=== PATIENT | female | born 1960 | race Caucasian/White ===

== ENCOUNTER 2019-11-23 12:02 | Outpatient (CLI) | payer BC, SELFPAY ==
--- NOTE | ~2019-11-23 | MM_ITS ---
EXAMINATION: MM diagnostic igor LT w quinton HISTORY: Left breast cancer history TECHNIQUE: ML, MLO and cc 3-D tomosynthesis images of the left breast were performed and synthetic 2- D images were generated. CAD analysis was submitted and interpreted. COMPARISON: 04/14/2019bilateral diagnostic digital mammogram To bilateral digital screening mammogram BREAST PARENCHYMAL COMPOSITION: There are scattered areas of fibroglandular density. FINDINGS: No interval suspicious mass, architectural distortion or significant new or developing dens ity or any malignant calcification, skin thickening or retraction is noted compared to 04/14/2019. IMPRESSION: 1. Known left breast malignancy 2. No significant change since 04/14/2019 BI-RADS Category 6: Known malignancy Reviewed, dictated and finalized at location A.
== END 2019-11-23 12:03 | disposition home or self-care (01) ==
PROVIDERS: PCP Family Medicine; Visit Provider Internal Medicine Hematology & Oncology
DX: C50.112 Malignant neoplasm of central portion of left female breast (principal); Z17.0 Estrogen receptor positive status [ER+]
CPT/HCPCS: 77061; 77065; G0279

== ENCOUNTER 2020-05-23 12:52 | Outpatient (CLI) | payer BC, SELFPAY ==
--- NOTE | ~2020-05-23 | DEXA_ITS ---
Bone Density Report Name: Bouchra Ramirez Age: 59 Sex: Female Ethnicity: White Date of : 1960 Indication: postmenopausal; height loss; prior fracture; cancer; Referring Provider: Teddy Chilel Study: Bone densitometry was performed. Exam Date: May 23, 2020 Accession number: [id number] Bone Density: Region BMD T-score Z-score Classification AP Spine (L1-L4) 0.723 -2.9 -1.6 Osteoporosis Femoral Neck (Left) 0.700 -1.3 -0.1 Osteopenia Total Hip (Left) 0.890 -0.4 0.5 Normal Total Hip Bilateral Avg 0.897 -0.4 0.6 Normal Femoral Neck (Right) 0.637 -1.9 -0.7 Osteopenia Total Hip (Right) 0.904 -0.3 0.6 Normal World Health Organization criteria for BMD impression classify patients as: Normal (T-score at or above -1.0), Osteopenia (T-score between -1.0 and -2.5), or Osteoporosis (T-score at or below -2.5). 10-year Fracture Risk: FRAX not reported because: Some T-score for Spine Total or Hip Total or Femoral Neck at or below -2.5 Clinical Information Provided by Patient: Has had a low trauma fracture Has the following medical conditions: Cancer Patient maximum height was 64 Menopause Age: 40 Drinks caffeinated beverages Onset of menses at age 13 Number of children 1 Impression: The patient has established osteoporosis, based on the Total Spine T-score and the existence of a prior fracture. The patient has risk factors, including: previous fracture. Discussion: HIGH RISK OF FRACTURE. BONE DENSITY IS UNDESIRABLY LOW AT ONE OR MORE SKELETAL SITES, CONSISTENT WITH POSTMENOPAUSAL OSTEOPOROSIS. This patient's lowest T-score, in a patient who has previously fractured, meets the World Health Organization's (WHO) criteria for severe osteoporosis. In untreated patients, the risk of osteoporotic fracture increases approximately two-fold for each 1.0 SD decrease in T-score. Low bone density is not the only risk factor for fracture; also consider factors such as patient's age, frailty or poor health, risk of falling, risk of injury, previous osteoporotic fracture, family history of osteoporosis, cigarette smoking, low body weight, etc. Not everyone with low bone mineral density has osteoporosis; osteomalacia and other metabolic bone disorders should also be considered. Patients who have osteoporosis should be evaluated for specific diseases and conditions (secondary causes) that may cause or contribute to bone loss. The [place] [employer] Endocrinologists (AACE) and National Osteoporosis Foundation (NOF) recommend pharmacologic intervention for all postmenopausal women whose T-score is in this range. The patient should follow a healthful lifestyle (good nutrition with adequate calcium and vitamin D, and appropriate weight-bearing exercise). Follow-Up: Consider a repeat BMD and Vertebral Fracture Assessment (VFA) exam
--- NOTE | ~2020-05-23 | MM_ITS ---
EXAMINATION: MM diagnostic igor BI w quinton HISTORY: Status post left partial mastectomy for breast cancer TECHNIQUE: ML, MLO and craniocaudal 3-D tomosynthesis images of both breasts were performed and synth etic 2-D images were generated. CAD analysis was submitted and interpreted. COMPARISON: 11/23/2019 diagnostic left digital mammogram 04/14/2019 bilateral diagnostic digital mammogram BREAST PARENCHYMAL COMPOSITION: There are scattered areas of fibroglandular density. FINDINGS: Right-sided Port-A-Cath is again noted. Postsurgical changes and BioSorb marker are again n oted posteriorly in the mid to upper outer left breast. There are areas of fat necrosis and benign ca lcification. No interval suspicious mass, architectural distortion, malignant calcification, skin thickening or re traction of either breast is evident. IMPRESSION: 1. Status post left partial mastectomy for breast cancer; no malignancy is evident 2. Routine annual mammographic screening is recommended, with any additional imaging as appropriate c linically BI-RADS Category 2: Benign finding(s). Reviewed, dictated and finalized at location A. [employer] IMPRESSION: 1. Status post left partial mastectomy for breast cancer; no malignancy is evid ent 2. Routine annual mammographic screening is recommended, with any additional im aging as appropriate clinically BI-RADS Category 2: Benign finding(s).
== END 2020-05-23 12:53 | disposition home or self-care (01) ==
LOC: ANHIMG 12:58
PROVIDERS: PCP Family Medicine; Visit Provider Internal Medicine Hematology & Oncology
DX: Z12.31 Encounter for screening mammogram for malignant neoplasm of breast (principal); Z78.0 Asymptomatic menopausal state; M81.0 Age-related osteoporosis without current pathological fracture; M85.89 Other specified disorders of bone density and structure, multiple sites
CPT/HCPCS: 77062; 77066; 77080; G0279

== ENCOUNTER 2020-11-28 11:28 | Outpatient (CLI) | payer BC, SELFPAY ==
--- NOTE | ~2020-11-28 | MM_ITS ---
EXAMINATION: MM diagnostic igor LT w quinton HISTORY: History of left breast cancer with lumpectomy and chemotherapy therapy/radiation therapy. TECHNIQUE: Additional 3-D tomosynthesis images of the breasts were performed and synthetic 2-D images were generated. CAD analysis was submitted and interpreted. COMPARISON: Comparison to multiple prior studies sequentially, with oldest reviewed study dated 11/28. BREAST PARENCHYMAL COMPOSITION: Breast composed of scattered areas of fibroglandular density. FINDINGS: There are no new masses, calcifications or architectural distortion in either breast to sug gest malignancy. There is fat necrosis in the lower inner quadrant of the left breast with developing dystrophic calcifications. There are markers located in the upper outer quadrant of the left breast posteriorly in the area of previous lumpectomy. There is a port catheter overlying the right breast. IMPRESSION: 1. No evidence for malignancy in either breast. 2. Routine yearly screening mammogram and regular clinical breast examination are recommended. BI-RADS Category 2: Benign finding(s). Reviewed, dictated and finalized at location A. IMPRESSION: 1. No evidence for malignancy in either breast. 2. Routine yearly screening mammogram and regular clinical breast examination a re recommended. BI-RADS Category 2: Benign finding(s).
== END 2020-11-28 11:29 | disposition home or self-care (01) ==
LOC: ANHIMG 11:34
PROVIDERS: PCP Family Medicine; Visit Provider Internal Medicine Hematology & Oncology
DX: C50.112 Malignant neoplasm of central portion of left female breast (principal); Z17.0 Estrogen receptor positive status [ER+]
CPT/HCPCS: 77061; 77065; G0279

== ENCOUNTER 2021-03-06 02:01 | Day surgery (SDC) | payer BC, SELFPAY ==
[2021-02-22 12:03] VITALS: BMI 30.2
--- NOTE | 2021-03-06 06:41 | PM.HPGS ---
History of Present Illness History of Present Illness Consent: Risks, benefits, and alternatives have been discussed and questions answered. Patient agrees to proceed with procedure. Chief complaint: neoplasm screening Narrative: Bouchra Ramirez is a 60 year old female Referred for colon cancer screening. She has a history of breast cancer Review of Systems Review of Systems: All systems reviewed & are unremarkable except as noted in HPI and below PMFSH Past Medical History Medical History BP (high blood pressure) Chemotherapy follow-up examination Chronic anemia MDD (major depressive disorder), recurrent episode, moderate Obesity (BMI 30.0-34.9) Surgical History Surgical History History of partial mastectomy of left breast Family History Family History Grandparent Family history of malignant neoplasm of breast Sibling Asthma Patient's sister is in good health Patient's brother is in good health Mother Patient's mother is in good health Family history of arthritis Father Family history of cardiovascular disease Social History Social History Social History: Smoking status: Former smoker Tobacco type: cigarettes Second hand tobacco smoke exposure: No Alcohol intake: current Drinks per week: 28 Alcohol use details: beer Substance use: never Substance use type: does not use Living arrangements: alone 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 Gender identity (if verbalized by the patient): Female Spiritual care concerns: No Meds Home Medications and Allergies Home Medications Medication Instructions Recorded Confirmed Type anastrozole 1 mg tablet 1 mg PO DAILY 06/26/19 02/22/21 History venlafaxine 37.5 mg 37.5 mg PO DAILY #30 tablet 01/18/21 02/22/21 Rx tablet,extended release 24 hr metoprolol tartrate 25 mg PO DAILY 02/22/21 02/22/21 History Allergies Allergy/AdvReac Type Severity Reaction Status Date / Time No Known Allergies Allergy Unknown Verified 02/22/21 12:01 Exam Resp: Auscultation: clear to auscultation bilaterally Cardio: Rate: regular rate Rhythm: regular rhythm GI: GI Palp: Yes Soft to palpation and No Tenderness to palpation present (GI) Assessment and Plan Assessment and plan (1) Colon cancer screening: Code(s): Z12.11 - Encounter for screening for malignant neoplasm of colon Status: Acute Assessment and Plan: Colonoscopy with possible biopsy or polypectomy or cautery or injection of substances.
[2021-03-06 08:12] VITALS: BP 134/86; PULSE 70; RESP 18; TEMP 36.2; O2SAT 98; BMI 31.2
--- NOTE | 2021-03-06 08:19 | P.PNAN_ITS ---
Anes - Initial Pre Proc Eval Procedure: Operation Date: 03/06/21 09:00 Proposed Procedures p Screening Colonoscopy - Porter Hubbard MD Date/Time: 03/06/21 08:19 Surgeon: Porter Hubbard MD Pre Op Diagnosis: neoplasm screening Patient Data Age: 60 Gender: F Height: 1.6 m Weight: 80 kg Last Vital Signs Temp 36.2 C L 03/06/21 08:12 Pulse 70 03/06/21 08:12 Resp 18 03/06/21 08:12 BP 134/86 03/06/21 08:12 Pulse Ox 98 03/06/21 08:12 Allergies Allergy/AdvReac Type Severity Reaction Status Date / Time No Known Allergies Allergy Unknown Verified 02/22/21 12:01 Home Medications Medication Instructions Recorded Confirmed Type anastrozole 1 mg tablet 1 mg PO DAILY 06/26/19 02/22/21 History venlafaxine 37.5 mg 37.5 mg PO DAILY #30 tablet 01/18/21 02/22/21 Rx tablet,extended release 24 hr metoprolol tartrate 25 mg PO DAILY 02/22/21 02/22/21 History Patient hx anesthesia problems: none Family hx anesthesia problems: none Results Review: All pre-operative results and documents have been reviewed as part of the pre-operative evaluation. [facility] Past Medical History Medical History BP (high blood pressure) Chemotherapy follow-up examination Chronic anemia MDD (major depressive disorder), recurrent episode, moderate Obesity (BMI 30.0-34.9) Surgical History Surgical History History of partial mastectomy of left breast Family History Family History Grandparent Family history of malignant neoplasm of breast Sibling Asthma Patient's sister is in good health Patient's brother is in good health Mother Patient's mother is in good health Family history of arthritis Father Family history of cardiovascular disease Social History Social History Social History: Smoking status: Former smoker Tobacco type: cigarettes Second hand tobacco smoke exposure: No Alcohol intake: current Drinks per week: 28 Alcohol use details: beer Substance use: never Substance use type: does not use Living arrangements: alone Additional occupation/education comments: real time analyst Gender identity (if verbalized by the patient): Female Spiritual care concerns: No Anes - Eval Final PreProcedure Day of Procedure 03/06/21 08:19 Patient weight: obese Heart: regular rate and rhythm Lungs: clear to auscultation Airway: Mallampati scale class II Neurological: alert and oriented Last oral intake: >/= 8 hours ASA classification: III Emergent: no Anesthetic plan: proceed Anesthesia type and monitoring: general GIVS and standard monitoring Results Review: All pre-operative results and documents have been reviewed as part of the pre-operative evaluation. Informed Consent: The patient's anesthetic plan and its attendant risks and benefits were discussed with the patient/family/POA. Questions were solicited and answers provided to the satisfaction of the patient/family/POA.
[2021-03-06] MEDS: LACTATED RINGERS 1,000 ML 150 ML IV CONT (08:22)
[2021-03-06 09:25] VITALS: BP 94/64; PULSE 66; RESP 15; O2SAT 99
[2021-03-06 09:35] VITALS: BP 94/59; PULSE 60; RESP 15; O2SAT 99
[2021-03-06 09:45] VITALS: BP 120/79; PULSE 61; RESP 18; O2SAT 100
== END 2021-03-06 10:16 | disposition home or self-care (01) ==
PROVIDERS: PCP Family Medicine; Visit Provider Internal Medicine Gastroenterology
PROC: 0DJD8ZZ Inspection of Lower Intestinal Tract, Via Natural or Artificial Opening Endoscopic (ICD-10-PCS; CPT 45378; principal; 2021-03-06 09:00)
DX: Z12.11 Encounter for screening for malignant neoplasm of colon (principal); D12.5 Benign neoplasm of sigmoid colon; K57.30 Diverticulosis of large intestine without perforation or abscess without bleeding; I10 Essential (primary) hypertension; D64.9 Anemia, unspecified; F33.1 Major depressive disorder, recurrent, moderate; Z79.811 Long term (current) use of aromatase inhibitors; Z92.21 Personal history of antineoplastic chemotherapy; Z87.891 Personal history of nicotine dependence; E66.9 Obesity, unspecified; Z68.31 Body mass index [BMI] 31.0-31.9, adult
CPT/HCPCS: 45385; 88305; J2704; J7120

== ENCOUNTER 2021-06-05 11:49 | Outpatient (CLI) | payer BC, SELFPAY ==
--- NOTE | ~2021-06-05 | MM_ITS ---
EXAMINATION: MM diagnostic igor BI w quinton HISTORY: Malignant neoplasm of the left breast TECHNIQUE: Craniocaudal, mediolateral, and mediolateral oblique 3-D tomosynthesis images of the breas ts were performed and synthetic 2-D images were generated. CAD analysis was submitted and interpreted . COMPARISON: 11/20/2020, 05/23/2020, 11/23/2019,04/14/2019 BREAST PARENCHYMAL COMPOSITION: There are scattered areas of fibroglandular density. FINDINGS: Stable lumpectomy changes are noted in the upper outer quadrant of the left breast. There a re areas of fat necrosis in the lower outer left breast. No suspicious calcification, architectural d istortion, or masses are identified in either breast. IMPRESSION: 1. No mammographic evidence of malignancy. 2. Recommend routine screening mammography in one year. BI-RADS Category 2: Benign finding(s). Reviewed, dictated and finalized at location A. SETTER
== END 2021-06-05 11:50 | disposition home or self-care (01) ==
PROVIDERS: PCP Family Medicine; Visit Provider Internal Medicine Hematology & Oncology
DX: C50.112 Malignant neoplasm of central portion of left female breast (principal); Z17.0 Estrogen receptor positive status [ER+]
CPT/HCPCS: 77062; 77066; G0279

== ENCOUNTER 2021-07-03 00:52 | Day surgery (SDC) | payer BC, SELFPAY ==
[2021-06-27 14:12] VITALS: BMI 31.9
--- NOTE | 2021-06-27 14:18 | PC.NURSE ---
Report to the Outpatient Waiting Room, entrance under the green pavilion located off [facility], at time _1230__ on date __[id number]. OR Time: _1330__. - You and your visitor will be asked a series of questions to screen for COVID 19 for your protection. - A mask is required within the hospital. - Only one visitor is allowed at this time. Patient visitors will be guided where to wait when not with patient. Preoperative COVID Testing Requirements: No COVID Test needed if: (proof is required; if not received patient will have Rapid Test prior to entry) - Patient has received COVID Vaccine at least 14 days prior to procedure date or - Patient has positive COVID test result within last 90 days of surgery date. COVID Test needed if above criteria is not met If not COVID vaccinated a COVID test must be conducted within 72 hours of surgery and patient is asked to isolate self from time of testing until procedure. You will go to the [facility] for your COVID testing. The [facility] is located at the corner of [address] from [facility]. You will only be called if COVID results are positive and your surgeon may reschedule your elective surgery date. No dietary restrictions due to local proceedure. Take the following medications with a SIP of water the morning of surgery: ____Take medications as usual. Medications to discontinue per physician Date to take last dose Please no make-up, nail indonesian, hairspray, perfume, deodorant, or body powder the day of surgery. No jewelry (including any body piercings) or valuables the day of surgery, leave them at home. Please take a shower or bath the night before, or the morning of, surgery with an antibacterial soap. Wear comfortable, loose fitting clothing. Children are encouraged to wear pajamas. - Jewelry must be removed prior to entering the operating room. Rings and piercings that are not removed may be cut off. - The hospital will not accept responsibility for valuables. - Please leave all valuables, including medications, at home the day of surgery. If you are going home after surgery, a licensed regional intermodal truck driver must drive you home. - NO public transportation without another adult. - We recommend that an adult stay with you for 24 hours following discharge. - We also recommend that you do not drive, make important decision, drink alcoholic beverages, or take any drugs that were not prescribed by your health care provider for at least 24 hours after your discharge time. For Pediatric surgeries, we recommend two adults accompany the child home (only one inside the building at this time). Follow any additional instructions given to you from your surgeon. Telephone instructions given to Patient____and asked if any additional questions and then verbalized understanding. Patient advised to call surgeon office or pre surgery nurse liaison [phone] if any additional questions.
[2021-07-03] VITALS (7 sets, daily range): BP systolic 122–138; BP diastolic 70–84; PULSE 58–67; RESP 16–18; TEMP 36.6; O2SAT 96–100
--- NOTE | 2021-07-03 07:35 | PM.HPGS ---
History of Present Illness History of Present Illness Consent: Risks, benefits, and alternatives of a Port-A-Cath removal have been discussed and questions answered. Patient agrees to proceed with procedure. Chief complaint: Malignant Neoplasm Central portion Narrative: Bouchra Ramirez is a 60 year old female who presents this time for removal of her Port-A-Cath. Over the last 2 years she has had treatment for her 2 Mathew negative left breast cancer. Port is no longer needed. 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 The tumor was ER positive, MD negative, and HER2 negative with a high Ki-67 of 25% and a high Oncotype Dx score of 61. She is status post left breast partial mastectomy with negative margins (margin closest to invasive tumor: 0.2 cm from the inferior margin; margin closest to DCIS: 0.1 cm from the medial margin). She is also status post a negative left axillary sentinel lymph node excision (0). She has completed adjuvant chemotherapy with Adriamycin and Cytoxan, followed by Taxol. She has also completed whole breast radiation on the left. Review of Systems Constitutional: Constitutional: Reports no additional constitutional complaints, Reports fatigue and Denies malaise Eyes: Eyes: Denies change in vision and Denies loss of vision ENT: Reports Normal hearing present, Denies change in voice, Denies dizziness, Denies hoarseness and Denies sore throat Cardiovascular: Cardiovascular: Denies chest pain, Denies leg edema and Denies dyspnea Respiratory: Respiratory: Denies cough, Denies dyspnea and Denies wheezing Comments: History of smoking but quit 1985 Gastrointestinal: Gastrointestinal: Denies hematochezia, Denies change in bowel habits and Denies heartburn Genitourinary: Genitourinary: Denies urinary frequency and Denies urinary incontinence Neurologic: Reports Normal hearing present, Denies confusion, Denies dizziness, Denies loss of vision, Denies memory loss and Denies seizure-like activity Psychiatric: Psychiatric: Denies confusion, Denies depression and Denies memory loss Endocrine: Endocrine: Denies cold intolerance and Reports fatigue Hematologic/Lymphatic: Hematologic/Lymphatic: Denies easy bleeding and Denies easy bruising Allergic/Immunologic: Allergic/Immunologic: Denies wheezing [facility] Past Medical History Medical History BP (high blood pressure) Chemotherapy follow-up examination Chronic anemia MDD (major depressive disorder), recurrent episode, moderate Obesity (BMI 30.0-34.9) Surgical History Surgical History H/O colonoscopy with polypectomy 2020, repeat 2015 History of partial mastectomy of left breast Family History Family History Grandparent Family history of malignant neoplasm of breast Sibling Asthma Patient's sister is in good health Patient's brother is in good health Mother Patient's mother is in good health Family history of arthritis Father Family history of cardiovascular disease Social History Social History Social History: Smoking packs per day: 0.5 Smoking cigarettes per day: 10.0 Years smoked: 7 Smoking pack-years: 3.50 Smoking status: Former smoker Tobacco type: cigarettes Second hand tobacco smoke exposure: No Alcohol intake: current Drinks per week: 5 Substance use: never Substance use type: does not use Living arrangements: alone Gender identity (if verbalized by the patient): Female Sexual Orientation (if Verbalized by the Patient): Straight or Heterosexual Spiri
--- NOTE | 2021-07-03 10:25 | WPDHPUPDATE1 ---
History and Physical Update Update Date/Time: 07/03/21 10:25 History and Physical has been reviewed, including an updated exam of the patient. There are NO changes in the patient's condition. Risks, benefits, and alternatives have been discussed and questions answered. Patient agrees to proceed with procedure.
--- NOTE | 2021-07-03 11:40 | W.PM.PROC2 ---
Procedure Note - Detailed Date of Procedure 07/03/21 Pre-op Diagnosis 1. Indwelling kelly-cath 2. Malignant Neoplasm Central portion of left breast Post-op Diagnosis same Procedure Performed Removal of Kelly-cath Surgeon Kannan Hopper MD Adult Nurse Practitioner none Anesthesia local (2% Xylocaine with Epi) Indications Patient has had a Port-A-Cath in for chemotherapy in the past. Now no longer in use. Plan to remove under local anesthetic. Findings There was a thin white capsule around the port and it's junction with the catheter. Description of Procedure Prior to the procedure the patient was seen in the holding area and the area of proposed surgery was marked. Her port was located in the upper part of the UOQ of the Right breast. All questions were answered and the patient wished to proceed with removal of the Port-A-Cath. The patient was brought to the operating room and placed supine. The entire right neck, chest, and shoulder were prepped with chlorhexidine. The area was draped off. Time-out was performed confirming patient and site of surgery. Following this a 15 blade knife was used to make incision directly on the scar from the previous port placement. This was done after infiltrating local anesthetic into the area of and inferior to the scar and into the area of the pocket containing the port to some degree using 1% xylocaine with epinephrine. Following this we carefully dissected down to the junction of the port and catheter. Bovie cautery with needle-tip was used to carefully incise the capsule around the port and free up the scar tissue around the junction of the port and catheter. Two Prolene sutures that were holding the port to the underlying fascia were carefully excised with a 15 blade knife and mosquito hemostats. Following this the port was brought up and out of the pocket. Then watching the patient's respirations I carefully removed the catheter in one smooth pull while applying pressure in the lower right neck area at the catheter exit site as the patient was breathing out. Pressure was held for 1 minute. I used Bovie cautery on some the subcutaneous tissues as we waited for good clotting. Again hemostasis was checked in the wound using Bovie cautery for superficial hemostasis in the subcutaneous tissues. Following this closure was obtained with 2 layers. I used buried subcutaneous sutures of 3-0 Vicryl in the subcutaneous layer followed by a running subcuticular closure of 4-0 Monocryl [Vicryl]on the skin. Patient tolerated the procedure well. Estimated blood loss was 3 cc Sponge, needle, and instrument counts were correct at the end the procedure and patient was taken to the outpatient recovery area in good condition. Implants none Drains No Packing No Pathology none sent Complications No immediate complications Condition stable Disposition same day
== END 2021-07-03 11:45 | disposition home or self-care (01) ==
PROVIDERS: PCP Family Medicine; Visit Provider Surgery
PROC: (CPT 36589; principal; 2021-07-03 10:45)
DX: Z45.2 Encounter for adjustment and management of vascular access device (principal); Z85.3 Personal history of malignant neoplasm of breast; D64.89 Other specified anemias; F32.9 Major depressive disorder, single episode, unspecified; I10 Essential (primary) hypertension; Z87.891 Personal history of nicotine dependence; Z98.82 Breast implant status
CPT/HCPCS: 36590

== ENCOUNTER 2021-08-25 11:57 | Outpatient (CLI) | payer BC, SELFPAY ==
[2021-08-25 12:50] LABS: Add Urine Microscopic? YES; Appearance Urine Cloudy (Clear); Bilirubin Urine Negative (Negative); Blood Urine 2+ (Negative); Color Urine Yellow (Yellow); Glucose Urine UA Negative (Negative); Ketones Urine Negative (Negative); Leukocyte Esterase Ur Negative LEU/UL (Negative); Mucus Urine Rare /lpf; Nitrate Urine Negative (Negative); Protein Urine Negative (Negative); Squamous Epithelial Cell Urine Rare /hpf (Few); Urobilinogen Urine Negative mg/dL (<2.0)
== END 2021-08-25 11:58 | disposition home or self-care (01) ==
LOC: ANHLAB 11:59
PROVIDERS: PCP Family Medicine; Visit Provider Nurse Practitioner Gerontology
DX: R30.0 Dysuria (principal)
CPT/HCPCS: 81001

== ENCOUNTER → 2021-09-05 11:00 | Outpatient (CLI) | payer BC, SELFPAY ==
--- NOTE | ~2021-09-05 | US_ITS ---
EXAMINATION: US renal BI DATE: 09/05/2021 11:19 INDICATION: Urinary tract infection TECHNIQUE: Multiple ultrasound grayscale images of the kidneys were obtained. COMPARISON: None. FINDINGS: The right kidney measures 9.5 x 4.9 x 4.5 cm. The left kidney measures 9.1 x 4.9 x 4.5 cm. The kidney s demonstrate normal echogenicity. There is no hydronephrosis in either kidney. No stones identified . The bladder is normal. IMPRESSION: 1. Normal kidneys without hydronephrosis. Reviewed, dictated and finalized at location B.
== END ==
PROVIDERS: PCP Family Medicine; Visit Provider Nurse Practitioner Gerontology
DX: N39.0 Urinary tract infection, site not specified (principal)
CPT/HCPCS: 76775

== ENCOUNTER → 2022-06-15 09:34 | Outpatient (CLI) | payer BC, SELFPAY ==
--- NOTE | ~2022-06-15 | MMUS_ITS ---
EXAMINATION: MM diagnostic igor BI w quinton, US breast LT limited HISTORY: Palpable left breast abnormality. TECHNIQUE: Additional 3-D tomosynthesis images of the breasts were performed and synthetic 2-D images were generated. CAD analysis was submitted and interpreted. High resolution Limited left breast ultr asound was performed. COMPARISON: Comparison to multiple prior studies sequentially, with oldest reviewed study dated 04/03. BREAST PARENCHYMAL COMPOSITION: Breast composed of scattered areas of fibroglandular density. FINDINGS: MAMMOGRAPHIC FINDINGS: There are surgical changes in the upper outer quadrant of the left breast posteriorly. There are fatt y masses in the lower slightly inner aspect of the left breast with developing calcifications, most l ikely benign fat necrosis. No new masses, calcifications or architectural distortion. The right breas t is stable without evidence for malignancy. ULTRASOUND: Limited left breast ultrasound: At 6:00, 5.5 cm from the nipple, there is a 7 mm hypoechoic mass with internal calcifications and posterior shadowing. No internal vascularity. At 5:00, 4.5 cm from the n ipple there is an oval hypoechoic mass with punctate internal echogenic foci, marginal vascularity an d posterior shadowing. IMPRESSION: 1. Abnormal left breast masses at 5 and 6:00 as described above. These likely correspond to areas of fat necrosis seen on mammography. 2. Recommend 6 month follow-up diagnostic left mammogram and Limited ultrasound. BI-RADS category 3, probably benign findings. Reviewed, dictated and finalized at location A. ER SALVAGER IMPRESSION: 1. Abnormal left breast masses at 5 and 6:00 as described above. These likely c orrespond to areas of fat necrosis seen on mammography. 2. Recommend 6 month follow-up diagnostic left mammogram and Limited ultrasound . BI-RADS category 3, probably benign findings.
== END ==
PROVIDERS: PCP Family Medicine; Visit Provider Internal Medicine Hematology & Oncology
DX: C50.112 Malignant neoplasm of central portion of left female breast (principal); Z17.0 Estrogen receptor positive status [ER+]; R92.8 Other abnormal and inconclusive findings on diagnostic imaging of breast
CPT/HCPCS: 76642; 77062; 77066; G0279

== ENCOUNTER 2022-09-28 11:39 | Outpatient (CLI) | payer BC, SELFPAY ==
--- NOTE | ~2022-09-28 | XR_ITS ---
EXAMINATION: XR abdomen obstructive series DATE: 09/28/2022 11:58 INDICATION: Bloating and abdominal distention TECHNIQUE: Upright and supine views of the abdomen were obtained. COMPARISON: None. FINDINGS: The bowel gas pattern is normal. No dilated loops of bowel are evident. There is no free in traperitoneal gas. There is a moderate volume of colonic stool. The visualized lung bases are clear. There are phleboliths of the left pelvis. 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 IMPRESSION: 1. Nonobstructive bowel gas pattern. Reviewed, dictated and finalized at location B.
== END 2022-09-28 11:40 | disposition home or self-care (01) ==
LOC: ANHIMG 11:43
PROVIDERS: PCP Family Medicine; Visit Provider Family Medicine
DX: R14.0 Abdominal distension (gaseous) (principal)
CPT/HCPCS: 74019

== ENCOUNTER 2022-12-24 11:17 | Outpatient (CLI) | payer BC, SELFPAY ==
--- NOTE | ~2022-12-24 | MMUS_ITS ---
EXAMINATION: MM diagnostic igor LT w quinton, US breast LT limited HISTORY: Six-month follow-up for probably benign left breast masses TECHNIQUE: Craniocaudal, mediolateral, and mediolateral oblique 3-D tomosynthesis images of the left breast were performed and synthetic 2-D images were generated. CAD analysis was submitted and interpr eted. High resolution limited left breast ultrasound was performed. COMPARISON: 06/15/2022, 06/05/2021, 11/28/2020, 05/23/2020 BREAST PARENCHYMAL COMPOSITION: There are scattered areas of fibroglandular density. FINDINGS: MAMMOGRAPHIC FINDINGS: There are stable lumpectomy changes in the upper outer quadrant of the left breast. Multiple stable a reas of fat necrosis are again noted in the breast. There has been no suspicious interval change when compared to prior mammograms. ULTRASOUND: Stable hypoechoic masses are noted at the 5:00 and 6:00 locations which have the appearance of fat ne crosis. No suspicious interval change is identified. IMPRESSION: 1. No mammographic or sonographic evidence of malignancy. 2. Routine screening mammography is recommended, due in six months. BI-RADS Category 2: Benign finding(s). Reviewed, dictated and finalized at location D. IMPRESSION: 1. No mammographic or sonographic evidence of malignancy. 2. Routine screening mammography is recommended, due in six months. BI-RADS Category 2: Benign finding(s).
== END 2022-12-24 11:18 | disposition home or self-care (01) ==
PROVIDERS: PCP Family Medicine; Visit Provider Internal Medicine Hematology & Oncology
DX: N63.20 Unspecified lump in the left breast, unspecified quadrant (principal); C50.112 Malignant neoplasm of central portion of left female breast; Z17.0 Estrogen receptor positive status [ER+]
CPT/HCPCS: 76642; 77061; 77065; G0279

== ENCOUNTER 2023-02-20 08:20 | Outpatient (CLI) | payer BC, SELFPAY ==
[2023-02-20 09:29] LABS: Cholesterol 196 mg/dL (0-200); HDL Direct 97 mg/dL; Triglycerides 46 mg/dL (<150)
[2023-02-20 09:40] LABS: LDL Cholesterol Direct 78 mg/dL
== END 2023-02-20 08:21 | disposition home or self-care (01) ==
LOC: ANHLAB 08:21
PROVIDERS: PCP Family Medicine; Visit Provider Physician Assistant
DX: Z13.220 Encounter for screening for lipoid disorders (principal)
CPT/HCPCS: 36415; 80061

== ENCOUNTER 2023-04-12 14:15 | Outpatient (CLI) | payer BC, SELFPAY ==
[2023-04-14 14:55] LABS: H pylori, Urea Breath NOT DETECTED (NOT DETECTED)
== END 2023-04-12 14:16 | disposition home or self-care (01) ==
LOC: ANHLAB 14:16
PROVIDERS: PCP Family Medicine; Visit Provider Family Medicine
DX: R68.81 Early satiety (principal); R10.13 Epigastric pain
CPT/HCPCS: 83013

== ENCOUNTER 2023-04-26 09:58 | Outpatient (CLI) | payer BC, SELFPAY ==
--- NOTE | ~2023-04-26 | US_ITS ---
EXAMINATION: US pelvic complete DATE: 04/26/2023 11:26 INDICATION: Acute perineal pain TECHNIQUE: Multiple transabdominal sonographic images of the pelvis were obtained. COMPARISON: None. FINDINGS: The uterus measures 5.7 x 2.2 x 4.5 cm. The endometrial complex measures 3 mm. The ovaries are not visualized however no adnexal abnormality is seen. There is no free fluid in the pelvis. IMPRESSION: 1. No sonographic correlate for the patient's symptoms. Reviewed, dictated and finalized at location F. GRINDER
== END 2023-04-26 09:59 | disposition home or self-care (01) ==
PROVIDERS: PCP Family Medicine; Visit Provider Family Medicine
DX: R10.2 Pelvic and perineal pain (principal); C50.112 Malignant neoplasm of central portion of left female breast
CPT/HCPCS: 76856

== ENCOUNTER 2023-06-18 14:03 | Outpatient (CLI) | payer BC, SELFPAY ==
--- NOTE | ~2023-06-18 | MM_ITS ---
EXAMINATION: MM screening igor BI w quinton HISTORY: Screening TECHNIQUE: Craniocaudal and mediolateral oblique 3-D tomosynthesis images were obtained and synthetic 2-D images were generated. CAD analysis was submitted and interpreted. COMPARISON: Comparison to multiple prior studies sequentially, with oldest reviewed study dated 05/04. BREAST PARENCHYMAL COMPOSITION: There are scattered areas of fibroglandular density. FINDINGS: There is no evidence of suspicious mass, calcification, or architectural distortion to sugg est malignancy in either breast. There has been no suspicious interval change. IMPRESSION: 1. No mammographic evidence of malignancy. 2. Recommend routine screening mammography in one year. BI-RADS Category 1: Negative Reviewed, dictated and finalized at location A. H SANDER
== END 2023-06-18 14:04 | disposition home or self-care (01) ==
PROVIDERS: PCP Family Medicine; Visit Provider Internal Medicine Hematology & Oncology
DX: Z12.31 Encounter for screening mammogram for malignant neoplasm of breast (principal)
CPT/HCPCS: 77063; 77067

== ENCOUNTER 2023-07-03 13:17 | Outpatient (CLI) | payer BC, SELFPAY ==
[2023-07-03 13:34] LABS: Basophils Percent Auto 0.9 % (0.2-1.2); Eosinophils Absolute Auto 0.1 K/mm3 (0-0.3); Eosinophils Percent Auto 2.6 % (0-4.4); Hematocrit 39.5 % (37.0-47.0); Hemoglobin 13.6 g/dL (12.0-15.0); Immature Granulocyte Absolute 0.01 K/mm3 (0.00-0.031); Immature Granulocyte Percent A 0.2 % (0-0.5); Lymphocytes Absolute Auto 1.47 K/mm3 (0.9-3.2); Lymphocytes Percent Auto 31.4 % (18.3-44.2); Mean Corpuscular HGB Conc 34.4 g/dl (32-36); Mean Corpuscular Hemoglobin 32.2 pg (26-34); Mean Corpuscular Volume 93.4 fl (80-100); Mean Platelet Volume 10.5 fl (7.4-10.4); Monocytes Absolute Auto 0.4 K/mm3 (0.1-0.6); Monocytes Percent Auto 8.1 % (2.6-8.5); Neutrophils Absolute Auto 2.7 K/mm3 (1.3-6.7); Neutrophils Percent Auto 56.8 % (45.5-73.1); Platelet Count Result 167 k/mm3 (150-375); Red Blood Count 4.23 M/mm3 (4.2-5.4); White Blood Count 4.7 K/mm3 (4.5-10.0)
[2023-07-03 20:08] LABS: Alanine Aminotransferase 24 U/L (6-35); Albumin Level 4.5 g/dL (3.5-5.1); Alkaline Phosphatase 78 U/L (38-126); Anion Gap 8 mmol/L (8-16); Aspartate Amino Transferase 30 U/L (14-36); Blood Urea Nitrogen 24 mg/dL (7-17); Calcium 9.7 mg/dL (8.4-10.2); Carbon Dioxide 26 mmol/L (22-30); Chloride 103 mmol/L (98-107); Estimated Glomerular Filt Rate > 60; Glucose 95 mg/dL (65-110); Potassium 4.5 mmol/L (3.4-5.0); Sodium 137 mmol/L (137-145)
[2023-07-06 07:45] LABS: CA 15-3 6 U/mL (<32)
== END 2023-07-03 13:18 | disposition home or self-care (01) ==
LOC: ANHLAB 13:19
PROVIDERS: PCP Family Medicine; Visit Provider Internal Medicine Hematology & Oncology
DX: C50.112 Malignant neoplasm of central portion of left female breast (principal); Z17.0 Estrogen receptor positive status [ER+]
CPT/HCPCS: 36415; 80053; 85025; 86300

== ENCOUNTER 2024-06-22 08:43 | Outpatient (CLI) | payer BC, SELFPAY ==
--- NOTE | ~2024-06-22 | MM_ITS ---
EXAMINATION: MM screening igor BI w quinton HISTORY: Screening TECHNIQUE: Craniocaudal and mediolateral oblique 3-D tomosynthesis images were obtained and synthetic 2-D images were generated. CAD analysis was submitted and interpreted. COMPARISON: Comparison to multiple prior studies sequentially, with oldest reviewed study dated 05/04. BREAST PARENCHYMAL COMPOSITION: Not dense: There are scattered areas of fibroglandular density. FINDINGS: There are developing clustered indeterminate calcifications in the lower inner quadrant of the left breast. The right breast is stable without evidence for malignancy. IMPRESSION: 1. Developing cluster of indeterminate calcifications lower inner quadrant of the left breast, middle third. 2. Magnification views are recommended. BI-RADS Category 0: Incomplete: Needs additional imaging evaluation. Reviewed, dictated and finalized at location A. REACTOR OPERATOR IMPRESSION: 1. Developing cluster of indeterminate calcifications lower inner quadrant of t he left breast, middle third. 2. Magnification views are recommended. BI-RADS Category 0: Incomplete: Needs additional imaging evaluation.
== END 2024-06-22 08:44 | disposition home or self-care (01) ==
LOC: ANHIMG 08:48
PROVIDERS: PCP Family Medicine; Visit Provider Internal Medicine Hematology & Oncology
DX: Z12.31 Encounter for screening mammogram for malignant neoplasm of breast (principal); R92.1 Mammographic calcification found on diagnostic imaging of breast
CPT/HCPCS: 77063; 77067

== ENCOUNTER 2024-06-30 13:23 | Outpatient (CLI) | payer BC, SELFPAY ==
[2024-06-30 13:36] LABS: Basophils Percent Auto 0.6 % (0.2-1.2); Eosinophils Absolute Auto 0.2 K/mm3 (0-0.3); Eosinophils Percent Auto 3.4 % (0-4.4); Hematocrit 38.8 % (37.0-47.0); Immature Granulocyte Absolute 0.01 K/mm3 (0.00-0.031); Immature Granulocyte Percent A 0.2 % (0-0.5); Lymphocytes Absolute Auto 1.28 K/mm3 (0.9-3.2); Lymphocytes Percent Auto 27.5 % (18.3-44.2); Mean Corpuscular HGB Conc 33.5 g/dl (32-36); Mean Corpuscular Hemoglobin 32.3 pg (26-34); Mean Corpuscular Volume 96.3 fl (80-100); Mean Platelet Volume 10.3 fl (7.4-10.4); Monocytes Absolute Auto 0.4 K/mm3 (0.1-0.6); Monocytes Percent Auto 8.4 % (2.6-8.5); Neutrophils Absolute Auto 2.8 K/mm3 (1.3-6.7); Neutrophils Percent Auto 59.9 % (45.5-73.1); Platelet Count Result 148 k/mm3 (150-375); Red Blood Count 4.03 M/mm3 (4.2-5.4); Red Cell Distribution Width 11.4 % (11.5-14.5); White Blood Count 4.7 K/mm3 (4.5-10.0)
--- OUTSIDE RECORDS SUMMARY | 2024-06-30 13:59 | XMS_ITS | Clinical Summary ---
Author Organization [facility] Address [address] [place] [address] Care Team Providers Care Principal Systems Architect Name Role Phone Tana Anton MD Primary Care Provider + Source Comments [facility],non-owned Affiliates and Associated Physician Practices is amultiple site organization consisting of ambulatory clinics and hospital sitesin [place], [place], [place] and [place]. This disclosure is being madepursuant to the Care Everywhere program and may not contain all information available regarding this patient. Last updated 18.[facility] [employer] Social History Tobacco Use Types Packs/Day Years Used Date Smoking Tobacco: Never Assessed Sex and Gender Information Value Date Recorded Sex Assigned at Not on file Gender Identity Not on file Sexual Orientation Not on file Plan of Treatment Health Maintenance Due Date Last Done Comments COLOGUARD (AGES 45-75) - COL ON CA SCREENING 1960 COLON MONITORING 1960 COLONOSCOPY - COLON CA SCREENING 1960 CT COLONOGRAPHY - COLON CA SCREENING 1960 Colorectal Cancer Screening 1960 FIT - COLON CA SCREENING 1960 FLEX SIG - COLON CA SCREENING 1960 LIPID TESTING 1960 PAP SMEAR 1960 HIV SCREENING 12/07/1975 HEPATITIS C SCREENING 12/02/1978 DTAP/TDAP/TD VACCINES (1 - Tdap) 12/07/1979 PNEUMOCOCCAL VACCINE 50+ (1 of 1 - PCV) 2010 ZOSTER VACCINE (1 of 2) 2010 MAMMOGRAM 07/21/2020 07/21/2018 COVID-19 VACCINE (1 - 2023-2 5 season) 2024 INFLUENZA VACCINE (#1) 2024 DEPRESSION SCREENING 06/03/2024 Respiratory Syncytial Virus (RSV) Vaccine Pt: or over 60 yrs (1 - 1-dose 75+ series) 12/07/2035 HEPATITIS B VACCINE Aged Out No longe r eligible based on patient's age to complete this topic HIB VACCINE Aged Out No longer eligi ble based on patient's age to complete this topic HPV VACCINE Aged Out No longer eligi ble based on patient's age to complete this topic MENINGOCOCCAL (Group B) VACCINE Aged Out No longer eligible based on patient's age to complete this topic MENINGOCOCCAL VACCINE Aged Out No maggie tyler eligible based on patient's age to complete this topic PNEUMOCOCCAL VACCINE Aged Out No long er eligible based on patient's age to complete this topic Care Teams Principal Systems Architect Relationship Specialty Start Date End Date Tana Anton MD [address] [place] [address] PCP - General 08/31/18
--- OUTSIDE RECORDS SUMMARY | 2024-06-30 13:59 | XMS_ITS | Referral Summary ---
Author Organization [facility] Address [address] [place] [address] Care Team Providers Care Vocational Technical Education Teacher Name Role Phone Tana Anton MD Primary Care Provider + Source Comments [facility],non-owned Affiliates and Associated Physician Practices is amultiple site organization consisting of ambulatory clinics and hospital sitesin [place], [place], [place] and [place]. This disclosure is being madepursuant to the Care Everywhere program and may not contain all information available regarding this patient. Last updated 18.[facility] Social History Tobacco Use Types Packs/Day Years Used Date Smoking Tobacco: Never Assessed Sex and Gender Information Value Date Recorded Sex Assigned at Not on file Gender Identity Not on file Sexual Orientation Not on file Plan of Treatment Not on file Care Teams Vocational Technical Education Teacher Relationship Specialty Start Date End Date Tana Anton MD [address] [place] [address] PCP - General 08/31/18
--- OUTSIDE RECORDS SUMMARY | 2024-06-30 13:59 | XMS_ITS | Encounter Summary ---
Author Organization [facility] Address [address] [place] [address] Care Team Providers Care Refrigeration System Installer Name Role Phone Tana Anton MD Primary Care Provider [phone]- [phone] Encounter Details Date Type Department Care Team (Late Contact Info) Description 03/12/2019 Chart Note [facility] Radiation Therapy [address] [place] [address] [place] [address] [place] [address] Social History Tobacco Use Types Packs/Day Years Used Date Smoking Tobacco: Former Cigarettes 1 10 976 - 1985 Smokeless Tobacco: Never Comments No Sex and Gender Information Value Date Recorded Sex Assigned at Not on file Legal Sex Female 10:56 AM CULINARY SPECIALIST Gender Identity Not on file Sexual Orientation Not on file documented as of this encounter Plan of Treatment Upcoming Encounters Date Type Department Care Team (Late Contact Info) Description 07/07/2024 10:15 AM CULINARY SPECIALIST Office Visit [facility] Oncology and Hematology - [place] [address] [place] [address] Teddy Chilel MD [address] [place] [address] documented as of this encounter Visit Diagnoses Not on filedocumented in this encounter Care Teams Refrigeration System Installer Relationship Specialty Start Date End Date Tana Anton MD PCP - General Family Practice 07/22/18 documented as of this encounter
--- OUTSIDE RECORDS SUMMARY | 2024-06-30 13:59 | XMS_ITS | Clinical Summary ---
Author Organization [facility] Address [address] [place] [address]. [address] [address] Care Team Providers Care Fish Hatchery Laborer Name Role Phone Unavailable Primary Care Provider Unavailabl e Social History Tobacco Use Types Packs/Day Years Used Date Smoking Tobacco: Never Assessed Comments Unknown Sex and Gender Information Value Date Recorded Sex Assigned at Not on file Legal Sex Female 4:47 PM CDT Gender Identity Not on file Sexual Orientation Not on file Last Filed Vital Signs Vital Sign Reading Time Taken Comments Blood Pressure 124/74 09/05/2016 1:25 PM CDT Pulse 75 09/05/2016 1:25 PM CDT Temperature - - Respiratory Rate - - Oxygen Saturation - - Inhaled Oxygen Concentration - - Weight 74.4 kg (164 lb) 09/05/2016 1:25 PM CDT Height 160 cm (5' 3 ) 09/05/2016 1:25 PM CDT Body Mass Index 29.05 09/05/2016 1:25 PM CDT Plan of Treatment Health Maintenance Due Date Last Done Comments Cervical Cancer Screening Pa p Smear (Age 30 to 64) Every 3 Years 1960 Colorectal Cancer Screening Colonoscopy (10 Years) 1960 Annual Physical 12/07/1963 Hepatitis C 1978 DTaP, Tdap and Td Vaccines ( 1 - Tdap) 12/07/1979 Cervical Cancer Screening Pa p with HPV Testing (Age 30 to 64) Every 5 Years 1990 Cervical Cancer Screening with HPV 1990 Mammogram Screening 2000 Zoster Vaccines (1 of 2) 2010 COVID-19 Vaccine ( - 2023-2 5 season) 2024 Influenza Adult (#1) 2024 RSV Immunization or 60+ Years (1 - 1-dose 75+ series) 12/07/2035 Meningococcal B Vaccine Aged Out No l onger eligible based on patient's age to complete this topic Meningococcal Vaccine Aged Out No maggie tyler eligible based on patient's age to complete this topic Pneumococcal Vaccine: Pediat rics (0 to 5 Years) and At-Risk Patients (6 to 64 Years) Aged Out No longer eligible b ased on patient's age to complete this topic RSV Immunizations Under 20 Months Aged Out No longer eligible based on patient's age to complete this topic
--- OUTSIDE RECORDS SUMMARY | 2024-06-30 14:00 | XMS_ITS | Clinical Summary ---
Author Organization [facility] Address [address] [place] [address] Care Team Providers Care Armhole Raiser Lockstitch Name Role Phone Tana Anton MD Primary Care Provider +1- [phone] Allergies No known active allergies Medications metoprolol tartrate (LOPRESSOR) 25 mg tablet Take 25 mg by mouth 2 times daily. Active busPIRone (BUSPAR) 5 mg tablet Take 10 mg by mouth 3 times daily. 12/07/2022 Active FLUoxetine (PROzac) 10 mg tablet Take 10 mg by mouth daily. 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, estrogen receptor positive 09/04/2018 Resolved Problems Problem Noted Date Diagnosed Date Resolved Date Flat epithelial atypia (FEA) of left breast 08/14/2018 10/14/2018 Abnormal mammogram of left breast 08/05/2018 09/04/2018 Abnormal ultrasound of breast 08/05/2018 09/04/2018 Other signs and symptoms in breast 08/05/2018 09/04/2018 Lump of left breast 08/05/2018 09/05/19 19 Encounters Date Type Department Care Team Description 06/25/2024 External Device Data STL ABSTRACTION Provider, Abstract 06/22/2024 Orders Only [facility] Oncology and Hematology - [place] [address] [address] Teddy Chilel MD Abnormal mammogram of left breast (Primary Dx) 06/22/2024 Orders Only [facility] Oncology and Hematology [facility] [address] [place] [address] Teddy Chilel MD 06/16/2024 External Device Data STL ABSTRACTION Provider, Abstract from Last 3 Months Family History Medical History Relation Name Comments Breast Cancer Maternal Grandfather Relation Name Status Comments Maternal Grandfather Maternal Grandmother Social History Tobacco Use Types Packs/Day Years Used Date Smoking Tobacco: Former Cigarettes 1 10 1 976 - 1985 Smokeless Tobacco: Never Tobacco Cessation:Counseling Given: Not Answered Comments No Sex and Gender Information Value Date Recorded Sex Assigned at Not on file Legal Sex Female 10:56 AM DOCUMENT CONTROL COORDINATOR Gender Identity Not on file Sexual Orientation Not on file Last Filed Vital Signs Vital Sign Reading Time Taken Comments Blood Pressure 126/73 01/10/2024 9:30 AM CDT Pulse 58 01/10/2024 9:30 AM CDT Temperature 36.5 ??C (97.7 ??F) 01/10/2024 9:30 AM CD T Respiratory Rate 16 01/10/2024 9:30 AM CDT Oxygen Saturation 96% 01/10/2024 9:30 AM CDT Inhaled Oxygen Concentration - - Weight 74.4 kg (164 lb) 01/10/2024 9:30 AM CDT Height 160 cm (5' 3 ) 12/11/2021 11:38 AM CDT Body Mass Index 29.05 12/11/2021 11:38 AM CDT Plan of Treatment Upcoming Encounters Date Type Department Care Team (Late st Contact Info) Description 07/07/2024 10:15 AM DOCUMENT CONTROL COORDINATOR Office Visit [facility] Oncology and Hematology [place] [address] [place] [address] Teddy Chilel MD [address] [employer] [address] [place] [address] Health Maintenance Due Date Last Done Comments Pre-Diabetes and Diabetes Screening 1960 DTAP/TDAP/TD VACCINES (1 - Tdap) 12/07/1979 ZOSTER VACCINE (1 of 2) 12/07/1979 CERVICAL CANCER SCREENING 1990 COLORECTAL SCREENING 2005 Colorectal Cancer Screening 2005 FIT-DNA Q 3 years 2005 FIT/FOBT Q 1 year 2005 Flex Sig/CT Colonography Q 5 years 2005 INFLUENZA VACCINE (#1) 2024 Preventative Visit- Commercial 06/03/2024 BREAST CANCER SCREENING 06/22/2025 06/22/19, 06/18/2023, 11/28/2020, Additional history exists RSV VACCINE (60+ or ) (1 - 1-dose 75+ series) 12/07/2035 Procedures Procedure Name Priority Date/Time Associated Diagnosis Comments MAMMO SCREENING BILAT Routine 06/22/2024 9:29 AM DOCUMENT CONTROL COORDINATOR from Last 3 Months Results * MAMMO SCREENING BILAT (06/22/2024 9:29 AM DOCUMENT CONTROL COORDINATOR) Anatomical Region Laterality Modality Breast Bilateral Other Teddy Chilel MD MAMMO ORDERABLES Final Result from Last 3 Months Insurance BCBS BLUE ACCESS/TRUE BLUE PPO BCBS BLUE ACCESS/TRUE BLUE PPO Care Teams Armhole Raiser Lockstitch Relationship Specialty Start Date End Date Tana Anton MD PCP - General Family Practice 07/22/18
--- OUTSIDE RECORDS SUMMARY | 2024-06-30 14:00 | XMS_ITS | Patient Health Summary ---
Author Organization [facility] [employer] Address [address] [place] [address] Care Team Providers Care Otolaryngology Nurse Name Role Phone Tana Anton MD Primary Care Provider + Note from [facility],non-owned Affiliates and Associated Physician Practices is amultiple site organization consisting of ambulatory clinics and hospital sitesin [place], [place], [place] and [place]. This disclosure is being madepursuant to the Care Everywhere program and may not contain all information available regarding this patient. Last updated 18.[facility] [employer] Social History Tobacco Use Types Packs/Day Years Used Date Smoking Tobacco: Never Assessed Sex and Gender Information Value Date Recorded Sex Assigned at Not on file Gender Identity Not on file Sexual Orientation Not on file Procedures * MRI BREAST BILAT [facility] CONTRAST(Performed 09/05/2018) Performed for Malignant neoplasm of central portion of left breast in female, estrogen receptor positive (HCC) * CREATININE BLOOD - POCT (IP) [facility](Performed 09/05/2018) Performed for Malignant neoplasm of central portion of left breast in female, estrogen receptor positive (HCC) Results * (ABNORMAL) MRI BREAST BILAT [facility] CONTRAST (09/05/2018 1:22 PM CDT) Anatomical Region Laterality Modality Breast Bilateral Magnetic Resonan ce 09/08/2018 12:2 8 PM CDT Impressions 09/08/2018 3:11 PM CDT IMPRESSION: BI-RADS category 6, known malignancy. Known malignancy within the left breast that may be multifocal, although the adjacent masses are within 1 cm from the dominant lesion and measure less than 4 mm in size. No suspicious findings on MRI within the right breast. RECOMMENDATION: ??The patient is already under the care of the breast surgeon, Dr. Sanchez, who will guide further management. This report was electronically signed by CECILE DE LA VEGA M.D. ??on 09/08/2018 3:11 PM . Narrative 09/08/2018 3:11 PM CDT MRI of the breasts with and without contrast COMPARISON: Postbiopsy mammogram of the left breast on 08/05/2018, stereotactic biopsy images on 08/28/2018 and additional left post biopsy mammogram on 08/28/2018. No additional imaging is available for comparison. HISTORY: 57-year-old female who underwent ultrasound-guided core biopsy of the left breast after a new mass was identified on screening mammography. This biopsy revealed atypia, but the biopsy marker (coil-shaped) was not in the appropriate position. Then a stereotactic breast biopsy was performed of the left breast on 08/28/2018 which revealed invasive ductal carcinoma and a ribbon-shaped biopsy marker was placed located 8 cm deep to the nipple in the upper outer left breast. In addition, she has a remote prior benign biopsy performed in the left breast at posterior depth. TECHNIQUE: Multiplanar multisequence MR imaging of both breasts before and following the administration of intravenous gadolinium contrast. Dynamic phase imaging was performed in the axial plane. Exam processed by and interpreted on a [employer] dining room server including 3-D volume rendering, subtraction image processing and contrast kinetic analysis. 8 cc of Gadovist intravenous. FINDINGS: Degree of postcontrast parenchymal enhancement: Mild and symmetric. Amount of fibroglandular tissue: ??Scattered fibroglandular tissue. RIGHT: No suspicious mass or nonmass enhancement is seen within the right breast. The skin, nipple and chest wall enhanced to a normal degree. Axillary lymph nodes are not enlarged. LEFT: An irregular enhancing mass measuring 1.7 x 1.5 cm is identified in the lower, slightly outer left breast at middle depth, 6.5 cm deep to the nipple. This likely corresponds to the known malignancy. A 2 cm hematoma is noted just lateral to the biopsy site. 2 small enhancing foci are also noted just anterior, less than 1 cm away, from the dominant mass which may represent multifocal disease, these measure less than 4 mm in size. Susceptibility artifact from biopsy marker is noted along the superior margin of this mass. A second biopsy marker is positioned 3 cm anterior and slightly superior to the known malignancy, 4 cm deep to the nipple which likely corresponds to the biopsy site revealing atypia. No focal abnormal enhancement or mass is seen at this location. A third biopsy marker is noted at posterior depth, 11 cm deep to the nipple. ??No additional mass or nonmass enhancement is seen within the left breast. The skin, nipple and chest wall enhanced to a normal degree. The surrounding soft tissues are unremarkable. Monika Sanchez DO MR ORDERABLES * (ABNORMAL) CREATININE BLOOD - POCT (IP) [facility] (09/05/2018 12:00 PM CDT) Creatinine POCT 1.09 0.3 - 1.3 mg/dL [facility] POCT TESTING eGFR POCT 55(A) 60 ml/min [facility] POCT [facility] Blood BLOOD SPECIMEN / Unknown 09/05/2018 12:00 PM CDT Monika Sanchez DO LAB - POINT OF CARE ORDERABLES Performing Organization Address [facility]/State/ZIP Co de Phone Number [facility]CT TEST[facility] [address] [phone] Care Teams Otolaryngology Nurse Relationship Specialty Start Date End Date Tana Anton MD [address] [place] [address] PCP - General 08/31/18
--- OUTSIDE RECORDS SUMMARY | 2024-06-30 14:00 | XMS_ITS | Encounter Summary ---
Author Organization [facility] [employer] [facility] Address [address] [place] [address] Care Team Providers Care Lithoplate Maker Name Role Phone Tana Anton MD Primary Care Provider [phone] Encounter Details Date Type Department Care Team (Late st Contact Info) Description 04/12/2023 Telephone [facility] ([facility]3] Oncology and Hematology - [place] [address] [facility] [address] [place] [address] Teddy Chilel MD [address] [facility] [address] [place] [address] Social History Tobacco Use Types Packs/Day Years Used Date Smoking Tobacco: Former Cigarettes 1 03 03 976 1985 Smokeless Tobacco: Never Comments No Sex and Gender Information Value Date Recorded Sex Assigned at Not on file Legal Sex Female 10:56 AM FIELD RECORDER Gender Identity Not on file Sexual Orientation Not on file documented as of this encounter Miscellaneous Notes * Telephone Encounter - CharanKumar - 04/12/2023 10:31 AM CST Patient contacted office wanting to leave a note for Dr. Chilel. Patient stated that she recieved acall from the Mammogram department stating that she would not be able to get a mammogram that is scheduled for 04/16/23, because of previous mammogram was June 2021. The patient was informed that due to insurance she's only allowed 1 mammogram a year, unless Dr needs a Bilateral Mammogram. Patient insisted that the current mammo order must be incorrect. Inside of 's notes on 01/07/23 he states I will order right breast screening mammogram now. D RECORDER documented in this encounter Plan of Treatment Upcoming Encounters Date Type Department Care Team (Late st Contact Info) Description 07/07/2024 10:15 AM FIELD RECORDER Office Visit [facility] ([facility]3] Oncology and Hematology - [place] [address] [facility] [address] [place] [address] Teddy Chilel MD [address] [facility] [address] [place] [address] documented as of this encounter Visit Diagnoses Not on filedocumented in this encounter Care Teams Lithoplate Maker Relationship Specialty Start Date End Date Tana Anton MD PCP - General Family Practice 07/22/18 documented as of this encounter
[2024-06-30 15:50] LABS: Alanine Aminotransferase 24 U/L (6-35); Albumin Level 4.3 g/dL (3.5-5.1); Alkaline Phosphatase 66 U/L (38-126); Anion Gap 5 mmol/L (4-12); Aspartate Amino Transferase 33 U/L (14-36); Bilirubin,Total 1.1 mg/dL (0.2-1.3); Blood Urea Nitrogen 17 mg/dL (7-17); Calcium 9.5 mg/dL (8.4-10.2); Carbon Dioxide 27 mmol/L (22-30); Chloride 103 mmol/L (98-107); Estimated Glomerular Filt Rate 59; Glucose 94 mg/dL (65-110); Potassium 4.5 mmol/L (3.4-5.0); Sodium 135 mmol/L (137-145)
[2024-07-02 02:38] LABS: CA 15-3 <5 U/mL (<32)
== END 2024-06-30 13:24 | disposition home or self-care (01) ==
LOC: ANHLAB 13:24
PROVIDERS: PCP Family Medicine; Visit Provider Internal Medicine Hematology & Oncology
DX: C50.112 Malignant neoplasm of central portion of left female breast (principal); Z17.0 Estrogen receptor positive status [ER+]
CPT/HCPCS: 36415; 80053; 85025; 86300

== ENCOUNTER 2024-12-31 15:01 | Outpatient (CLI) | payer BC, SELFPAY ==
--- OUTSIDE RECORDS SUMMARY | 2024-12-31 15:04 | XMS_ITS | Clinical Summary ---
Author Organization [facility] Address [address] [place] [address] Care Team Providers Care Branch Library Clerk Name Role Phone Brody Cohen MD Primary Care Provider [phone] Allergies No known active allergies Medications metoprolol [...] Encounters Date Type Department Care Team Description 12/17/2024 External Device Data [place] ABSTRACTION Provider, Abstract 12/16/2024 External Device Data [place] ABSTRACTION Provider, Abstract 12/16/2024 External Device Data [place] ABSTRACTION Provider, Abstract 11/24/2024 External Device Data [place] ABSTRACTION Provider, Abstract 11/24/2024 External Device Data [place] ABSTRACTION Provider, Abstract 11/18/2024 External Device Data [place] ABSTRACTION Provider, Abstract 10/22/2024 External Device Data [place] ABSTRACTION Provider, Abstract 10/21/2024 External Device Data [place] ABSTRACTION Provider, Abstract [...] on file Legal Sex Female 10:56 AM SHOE SHANKER Gender Identity Not on file Sexual Orientation Not on file Last Filed Vital Signs Vital Sign Reading Time Taken Comments Blood Pressure 137/87 07/08/2024 1:56 PM SHOE SHANKER Pulse 78 07/08/2024 1:56 PM SHOE SHANKER Temperature 36.3 C (97.4 F) 07/08/2024 1:56 PM SHOE SHANKER Respiratory Rate 18 07/08/2024 1:56 PM SHOE SHANKER Oxygen Saturation 96% 07/08/2024 1:56 PM SHOE SHANKER Inhaled Oxygen Concentration - - Weight 76.2 kg (168 lb) 07/08/2024 1:56 PM SHOE SHANKER Height 160 cm (5' 3) 12/11/2021 11:38 AM CDT Body Mass Index 29.76 12/11/2021 11:38 AM CDT Plan of Treatment Upcoming Encounters Date Type Department Care Team (Late st Contact Info) Description 01/07/2025 10:00 AM CDT Office Visit [facility] Oncology and Hematology - [place] [address] [facility] [address] [place] [address] Teddy Chilel MD [address] [facility] [address] [place] [address] Health Maintenance Due Date Last Done Comments Pre-Diabetes and Diabetes Screening 1960 DTAP/TDAP/TD VACCINES (1 - Tdap) 12/07/1979 ZOSTER VACCINE (1 of 2) 12/07/1979 HPV/Cotest (21-29) 1981 CERVICAL CANCER SCREENING 1990 HPV/Cotest (30-65) 1990 PAP SMEAR 1990 COLORECTAL SCREENING 2005 Colorectal Cancer Screening 2005 FIT-DNA Q 3 years 2005 FIT/FOBT Q 1 year 2005 Flex Sig/CT Colonography Q 5 years 2005 Preventative Visit- Commercial 06/03/2024 INFLUENZA VACCINE (#1) 2025 BREAST CANCER SCREENING 07/06/2025 07/06/19, 06/22/2024, 06/18/2023, Additional history exists RSV VACCINE (60+ or ) (1 - 1-dose 75+ series) 12/07/2035 Procedures Procedure Name Priority Date/Time Associated Diagnosis Comments MAMMO DIAGNOSTIC UNI LEFT W OR WO CAD Routine 07/06/2024 2:37 PM SHOE SHANKER from Last 3 Months or Most Recently Relevant to Health Maintenance Results * MAMMO DIAGNOSTIC UNI LEFT W OR WO CAD (07/06/2024 2:37 PM SHOE SHANKER) Anatomical Region Laterality Modality Breast Left Mammography Teddy Chilel MD MAMMO ORDERABLES Final Result from Last 3 Months or Most Recently Relevant to Health Maintenance Insurance BCBS OUT OF STATE BCBS OUT OF STATE Care Teams Branch Library Clerk Relationship Specialty Start Date End Date Brody Cohen MD [address] [facility] [address] [place] [address] PCP - General Family Practice 07/08/24
--- OUTSIDE RECORDS SUMMARY | 2024-12-31 15:04 | XMS_ITS | Encounter Summary ---
Author Organization [facility] Address [address] [place] [address] Care Team Providers Care Immunopathologist Name Role Phone Brody Cohen MD Primary Care Provider [phone] Encounter Details Date Type Department Care Team (Late Contact Info) Description 03/12/2019 Chart Note [facility] Radiation Therapy [address] [place] [address] [place] [address] [place] [address] Social History Tobacco Use Types Packs/Day Years Used Date Smoking Tobacco: Former Cigarettes 1 10 976 - 1985 Smokeless Tobacco: Never Comments No Sex and Gender Information Value Date Recorded Sex Assigned at Not on file Legal Sex Female 10:56 AM EXTRUSION SUPERVISOR Gender Identity Not on file Sexual Orientation Not on file documented as of this encounter Plan of Treatment Upcoming Encounters Date Type Department Care Team (Late Contact Info) Description 01/07/2025 10:00 AM CDT Office Visit [facility] Oncology and Hematology - [place] [address] [facility] [address] [place] [address] Teddy Chilel MD [address] [facility] [address] [place] [address] documented as of this encounter Visit Diagnoses Not on filedocumented in this encounter Care Teams Immunopathologist Relationship Specialty Start Date End Date Brody Cohen MD [address] [facility] [address] [place] [address] PCP - General Family Practice 07/08/24 documented as of this encounter
--- OUTSIDE RECORDS SUMMARY | 2024-12-31 15:04 | XMS_ITS | Clinical Summary ---
Author Organization [facility] Address [address] [place] [address] Care Team Providers Care Studio Operation Engineer Name Role Phone Tana Anton MD Primary Care Provider + Source Comments [facility],non-owned Affiliates and Associated Physician Practices is amultiple site organization consisting of ambulatory clinics and hospital sitesin [place], [place], [place] and [place]. This disclosure is being madepursuant to the Care Everywhere program and may not contain all information available regarding this patient. Last updated 18.[facility] [employer] Social History Tobacco Use Types Packs/Day Years Used Date Smoking Tobacco: Never Assessed Comments Unknown Sex and Gender Information Value Date Recorded Sex Assigned at Not on file Legal Sex Female 5:53 AM CDT Gender Identity Not on file Sexual [...] COLON CA SCREENING 1960 LIPID TESTING 1960 HIV SCREENING 12/07/1975 HEPATITIS C SCREENING 12/02/1978 DTAP/TDAP/TD VACCINES (1 - Tdap) 12/07/1979 PNEUMOCOCCAL VACCINE 50+ (1 of 1 - PCV) 2010 ZOSTER VACCINE (1 of 2) 2010 MAMMOGRAM 07/21/2020 07/21/2018, 07/08/2018 COVID-19 VACCINE (1 - 2023-2 5 season) 2024 DEPRESSION SCREENING 06/03/2024 INFLUENZA VACCINE (#1) 2025 Respiratory Syncytial Virus (RSV) Vaccine Pt: or [...] complete this topic MENINGOCOCCAL (Group B) VACCINE SHARED DECISION-MAKING Aged Out No longer eligible based on patient's age to complete this topic MENINGOCOCCAL GROUPS A/C/Y/W VACCINE Aged Out No longer eligible b ased on patient's age to complete this topic Insurance ANTHEM ANTHEM Care Teams Studio Operation Engineer Relationship Specialty Start Date End Date Tana Anton MD [address] [place] [address] PCP - General 08/31/18
--- OUTSIDE RECORDS SUMMARY | 2024-12-31 15:04 | XMS_ITS | Encounter Summary ---
Author Organization [facility] [employer] [facility] Address [address] [place] [address] Care Team Providers Care Supercharger Repair Supervisor Name Role Phone Brody Cohen MD Primary Care Provider Encounter Details Date Type Department Care Team (Late st Contact Info) Description 04/12/[address] [facility] Oncology and Hematology - [place] [address] [facility] [address] [place] [address] Teddy Chilel MD [address] [facility] [address] [place] [address] Social History Tobacco Use Types Packs/Day Years Used Date Smoking Tobacco: Former Cigarettes 1 03 03 976 1985 Smokeless Tobacco: Never Comments No Sex and Gender Information Value Date Recorded Sex Assigned at Not on file Legal Sex Female 10:56 AM STAMP PRESS OPERATOR Gender Identity Not on file Sexual Orientation Not on file documented as of this encounter Miscellaneous Notes * Telephone Encounter - [place] Farrarjo-ann - 04/12/2023 10:31 AM CST Patient contacted office wanting to leave a note for Dr. Cihlel. Patient stated that she recieved acall from [...] will order right breast screening mammogram now. P PRESS OPERATOR documented in this encounter Plan of Treatment Upcoming Encounters Date Type Department Care Team (Late st Contact Info) Description 01/07/2025 10:00 AM CDT Office Visit [facility] Oncology and Hematology - [place] [address] [facility] [address] [place] [address] Teddy Chilel MD [address] [facility] [address] [place] [address] documented as of this encounter Visit Diagnoses Not on filedocumented in this encounter Care Teams Supercharger Repair Supervisor Relationship Specialty Start Date End Date Brody Cohen MD [address] [place] [address] PCP - General Family Practice 07/08/24 documented as of this encounter
[2024-12-31 15:16] LABS: Hematocrit 38.8 % (37.0-47.0); Hemoglobin 13.2 g/dL (12.0-15.0); Immature Granulocyte Percent A 0.2 % (0-0.5); Lymphocytes Absolute Auto 1.55 K/mm3 (0.9-3.2); Mean Corpuscular HGB Conc 34.0 g/dl (32-36); Mean Corpuscular Hemoglobin 32.1 pg (26-34); Mean Corpuscular Volume 94.4 fl (80-100); Nucleated Red Blood Cells Absolute Auto 0.000 K/mm3 (0.0-0.012); Nucleated Red Blood Cells Perc 0.0 % (0.0-0.2); Platelet Count Result 157 k/mm3 (150-375); Red Blood Count 4.11 M/mm3 (4.2-5.4); White Blood Count 5.6 K/mm3 (4.5-10.0)
[2024-12-31 16:26] LABS: Alanine Aminotransferase 27 U/L (6-35); Albumin Level 4.5 g/dL (3.5-5.1); Alkaline Phosphatase 66 U/L (38-126); Anion Gap 6 mmol/L (4-12); Aspartate Amino Transferase 52 U/L (14-36); Bilirubin,Total 1.2 mg/dL (0.2-1.3); Blood Urea Nitrogen 16 mg/dL (7-17); Calcium 9.5 mg/dL (8.4-10.2); Carbon Dioxide 26 mmol/L (22-30); Chloride 103 mmol/L (98-107); Estimated Glomerular Filt Rate > 60; Glucose 97 mg/dL (65-110); Potassium 4.4 mmol/L (3.4-5.0); Sodium 135 mmol/L (137-145); Total Protein 7.5 g/dL (6.3-8.2)
== END 2024-12-31 15:02 | disposition home or self-care (01) ==
LOC: ANHLAB 15:02
PROVIDERS: PCP Family Medicine; Visit Provider Internal Medicine Hematology & Oncology
DX: C50.112 Malignant neoplasm of central portion of left female breast (principal); Z17.0 Estrogen receptor positive status [ER+]
CPT/HCPCS: 36415; 80053; 85025; 86300

== ENCOUNTER 2025-01-19 13:49 | Outpatient (CLI) | payer BC, SELFPAY ==
--- NOTE | ~2025-01-19 | DEXA_ITS ---
Bone Density Report Name: ALEX LEVY Age: 64 Sex: Female Ethnicity: White Date of : 1960 Indication: postmenopausal; screening for osteoporosis; height loss; cancer; Referring Provider: JAIME BISWAS Study: Bone densitometry was performed. Exam Date: January 19, 2025 Accession number: [id number] Bone Density: Region BMD T-score Z-score Classification AP Spine(L1-L4) 0.690 -3.2 -1.5 Osteoporosis Femoral Neck (Left) 0.633 -1.9 -0.5 Osteopenia Total Hip (Left) 0.873 -0.6 0.6 Normal Femoral Neck (Right) 0.597 -2.3 -0.8 Osteopenia Total Hip (Right) 0.817 -1.0 0.1 Normal Total Hip Mean 0.845 -0.8 0.4 Normal World Health Organization criteria for BMD impression classify patients as: Normal (T-score at or above -1.0), Osteopenia (T-score between -1.0 and -2.5), or Osteoporosis (T-score at or below -2.5). 10-year Fracture Risk: FRAX not reported because: Some T-score for Spine Total or Hip Total or Femoral Neck at or below -2.5 Clinical Information Provided by Patient: Has the following medical conditions: Cancer Patient maximum height was 64 Menopause Age: 40 Drinks caffeinated beverages Onset of menses at age 13 Number of children 1 Impression: The patient has osteoporosis, based on the Total Spine T-score. Discussion: INCREASED RISK OF FRACTURE. BONE DENSITY IS UNDESIRABLY LOW AT ONE OR MORE SKELETAL SITES, CONSISTENT WITH POSTMENOPAUSAL OSTEOPOROSIS. This patient's lowest T-score meets the World Health Organization's (WHO) criteria for osteoporosis at one or more sites (T-score -2.5 or below). In untreated patients, the risk of osteoporotic fracture increases approximately two-fold for each 1.0 SD decrease in T-score. Low bone density is not the only risk factor for fracture; also consider factors such as patient's age, frailty or poor health, risk of falling, risk of injury, previous osteoporotic fracture, family history of osteoporosis, cigarette smoking, low body weight, etc. Not everyone with low bone mineral density has osteoporosis; osteomalacia and other metabolic bone disorders should also be considered. Patients who have osteoporosis should be evaluated for specific diseases and conditions (secondary causes) that may cause or contribute to bone loss. The [place] Association of Clinical Endocrinologists (AACE) and National Osteoporosis Foundation (NOF) recommend pharmacologic intervention for all postmenopausal women whose T-score is in this range. The patient should follow a healthful lifestyle (good nutrition with adequate calcium and vitamin D, and appropriate weight-bearing exercise). Follow-Up: Consider a repeat BMD and Vertebral Fracture Assessment (VFA) exam in 2 years or sooner if medically necessary, to reassess this patient's status. Reported by: ACOSTA on 01/19/2025 2:29:00 PM. Reviewed, dictated and finalized at location A.
--- OUTSIDE RECORDS SUMMARY | 2025-01-19 14:05 | XMS_ITS | Clinical Summary ---
Author Organization [facility] Address [address] [place] [address] Care Team Providers Care Galley Boy Name Role Phone Unavailable Primary Care Provider [...] 1:25 PM CDT Height 160 cm (5' 3) 09/05/2016 1:25 PM CDT Body Mass Index [...] Screening with HPV 1990 Mammogram Screening 2000 Pneumococcal Vaccine: 50+ Ye ars (1 of 1 - PCV) 2010 Zoster Vaccines (1 of 2) 2010 COVID-19 Vaccine ( - 2023-2 5 season) 2024 RSV Immunization or 60+ Years (1 [...]
--- OUTSIDE RECORDS SUMMARY | 2025-01-19 14:05 | XMS_ITS | Encounter Summary ---
Author Organization [facility] [employer] [facility] Address [address] [place] [address] Care Team Providers Care Wallpaper Installer Name Role Phone Brody Cohen MD Primary Care Provider [phone] Encounter Details Date Type Department Care Team (Late st Contact Info) Description 04/12/2023 Telephone [facility] Oncology and Hematology - [place] [address] [facility] [address] [place] [address] Teddy Chilel MD [address] [facility] [address] [place] [address] Social History Tobacco Use Types Packs/Day Years Used Date Smoking Tobacco: Former Cigarettes 1 03 03 976 1985 Smokeless Tobacco: Never Comments No Sex and Gender Information Value Date Recorded Sex Assigned at Not on file Legal Sex Female 10:56 AM MILK COLLECTOR Gender Identity Not on file Sexual Orientation [...] will order right breast screening mammogram now. COLLECTOR documented in this encounter Plan of Treatment Upcoming Encounters Date Type Department Care Team (Late st Contact Info) Description 07/14/2025 11:00 AM MILK COLLECTOR Office Visit [facility] Oncology and Hematology - [place] [address] [facility] [address] [place] [address] Teddy Chilel MD [address] [facility] [address] [place] [address] documented as of this encounter Visit Diagnoses Not on filedocumented in this encounter Care Teams Wallpaper Installer Relationship Specialty Start Date End Date Brody Cohen MD [address] [place] [address] PCP - General Family Practice 07/08/24 documented as of this encounter
--- OUTSIDE RECORDS SUMMARY | 2025-01-19 14:05 | XMS_ITS | Clinical Summary ---
Author Organization [facility] Address [address] [place] [address] Care Team Providers Care Internal Sales Name Role Phone Brody Cohen MD Primary Care Provider [phone] Allergies No known active allergies Medications metoprolol tartrate (LOPRESSOR) 25 mg tablet Take 25 mg by mouth 2 times daily. Active anastrozole (ARIMIDEX) 1 mg tablet TAKE [...] Encounters Date Type Department Care Team Description 01/12/2025 External Device Data STL ABSTRACTION Provider, Abstract 01/07/2025 10:00 AM CDT Office Visit [facility] Oncology and Hematology - [place] [address] [place] [address] Teddy Chilel MD Malignant neoplasm of central portion of left breast in female, estrogen receptor positive (CMS/HCC) (Primary Dx); Visit for screening mammogram 01/07/2025 Orders Only [facility] Oncology and Hematology - [place] [address] [place] [address] Teddy Chilel MD Osteoporosis, unspecified osteoporosis type, unspecified pathological fracture presence (Primary Dx) 01/01/2025 Orders Only [facility] Oncology and Hematology - [place] [address] [place] [address] Teddy Chilel MD 12/31/2024 Orders Only [facility] Oncology and Hematology - [place] [address] [place] [address] Teddy Chilel MD 12/17/2024 External Device Data [place] ABSTRACTION Provider, [...] Former Cigarettes 1 10 1 976 - 1986 Smokeless Tobacco: Never Tobacco Cessation:Counseling Given: Not Answered Comments No Sex and Gender Information Value Date Recorded Sex Assigned at Not on file Legal Sex Female 10:56 AM WIRE BORDER ASSEMBLER Gender Identity Not on file Sexual Orientation Not on file Last Filed Vital Signs Vital Sign Reading Time Taken Comments Blood Pressure 127/74 01/07/2025 9:57 AM CDT Pulse 72 01/07/2025 9:57 AM CDT Temperature 36.5 C (97.7 F) 01/07/2025 9:57 AM CDT Respiratory Rate 14 01/07/2025 9:57 AM CDT Oxygen Saturation 98% 01/07/2025 9:57 AM CDT Inhaled Oxygen Concentration - - Weight 76.5 kg (168 lb 9.6 oz) 01/07/2025 9:57 A M CDT Height 160 cm (5' 3) 12/11/2021 11:38 AM CDT Body Mass Index 29.87 12/11/2021 11:38 AM CDT Plan of Treatment Upcoming Encounters Date Type Department Care Team (Late st Contact Info) Description 07/14/2025 11:00 AM WIRE BORDER ASSEMBLER Office Visit [facility] Oncology and Hematology [facility] [address] [facility] [address] [place] [address] Teddy Chilel MD [address] [facility] [address] [place] [address] Health Maintenance Due Date Last [...] Q 5 years 2005 INFLUENZA VACCINE (#1) 2025 BREAST CANCER SCREENING 07/06/2025 07/06/19, 06/22/2024, 06/18/2023, Additional history exists RSV VACCINE (60+ or ) (1 - 1-dose 75+ series) 12/07/2035 Procedures Procedure Name Priority Date/Time Associated Diagnosis Comments CBC WITH AUTODIFFERENTIAL Routine 2024 4:06 PM CDT CHG CA 15 3 Routine 12/31/2024 10:43 AM CDT COMPREHENSIVE METABOLIC PANEL Routine 12/31/2024 10:18 AM CDT MAMMO DIAGNOSTIC UNI LEFT W OR WO CAD Routine 07/06/2024 2:37 PM WIRE BORDER ASSEMBLER from Last 3 Months or Most Recently Relevant to Health Maintenance Results * CBC WITH AUTODIFFERENTIAL (12/31/2024 4:06 PM CDT) Blood us Teddy Chilel MD HEMATOLOGY ORDERABLES Final Res ult * CHG CA 15 3 (12/31/2024 10:43 AM CDT) us Teddy Chilel MD CHG - LABORATORY Final Result * COMPREHENSIVE METABOLIC PANEL (12/31/2024 10:18 AM CDT) Blood us Teddy Chilel MD CHEMISTRY ORDERABLES Final Resu lt * MAMMO DIAGNOSTIC UNI LEFT W OR WO CAD (07/06/2024 2:37 PM WIRE BORDER ASSEMBLER) Anatomical Region Laterality Modality Breast Left Mammography us Teddy Chilel MD MAMMO ORDERABLES Final Result from Last 3 Months or Most Recently Relevant to Health Maintenance Insurance BCBS OUT OF STATE BCBS OUT OF STATE Care Teams Internal Sales Relationship Specialty Start Date End Date Brody Cohen MD [address] [facility] [address] [place] [address] PCP - General Family Practice 07/08/24
--- OUTSIDE RECORDS SUMMARY | 2025-01-19 14:05 | XMS_ITS | Encounter Summary ---
Author Organization [facility] Address [address] [place] [address] Care Team Providers Care Shelver Name Role Phone Brody Cohen MD Primary Care Provider [phone] Encounter Details Date Type Department Care Team (Late Contact Info) Description 03/12/2019 Chart Note [facility] Radiation Therapy [address] [place] [address] [place] [address] [place] [address] Social History Tobacco Use Types Packs/Day Years Used Date Smoking Tobacco: Former Cigarettes 1 10 976 - 1985 Smokeless Tobacco: Never Comments No Sex and Gender Information Value Date Recorded Sex Assigned at Not on file Legal Sex Female 10:56 AM EDITOR MAP Gender Identity Not on file Sexual Orientation Not on file documented as of this encounter Plan of Treatment Upcoming Encounters Date Type Department Care Team (Late st Contact Info) Description 07/14/2025 11:00 AM EDITOR MAP Office Visit [facility] Oncology and Hematology - [place] [address] [facility] [address] [place] [address] Teddy Chilel MD [address] [facility] [address] [place] [address] documented as of this encounter Visit Diagnoses Not on filedocumented in this encounter Care Teams Shelver Relationship Specialty Start Date End Date Brody Cohen MD [address] [facility] [address] [place] [address] PCP - General Family Practice 07/08/24 documented as of this encounter
--- OUTSIDE RECORDS SUMMARY | 2025-01-19 14:05 | XMS_ITS | Clinical Summary ---
Author Organization [facility] Address [address] [facility] [place] [address] Care Team Providers Care Starch Dumper Name Role Phone Tana Anton MD Primary Care Provider + Source Comments [facility],non-owned Affiliates and Associated Physician Practices is amultiple site organization consisting of ambulatory clinics and hospital sitesin [place], [place], [place] and [place]. This disclosure is being madepursuant to the Care Everywhere program and may not contain all information available regarding this patient. Last updated 18.[facility] [employer] Social History Tobacco Use Types Packs/Day [...] this topic Insurance ANTHEM ANTHEM Care Teams Starch Dumper Relationship Specialty Start Date End Date Tana Anton MD [address] [place] [address] PCP - General 08/31/18
== END 2025-01-19 13:50 | disposition home or self-care (01) ==
LOC: ANHFOHIMG 13:50
PROVIDERS: PCP Family Medicine; Visit Provider Internal Medicine Hematology & Oncology
DX: M81.0 Age-related osteoporosis without current pathological fracture (principal); M85.89 Other specified disorders of bone density and structure, multiple sites
CPT/HCPCS: 77080